=== PATIENT | female | born 1955 | race Caucasian/White ===

== ENCOUNTER 2018-06-03 06:03 | Day surgery (SDC) | payer BC ==
[2018-06-03] MEDS ORDERED: DIPRIVAN 200 MG/20 ML IV ONE (06:04)
[2018-06-03] MEDS ORDERED: Ketamine HCl 50 MG/ML IJ ONE (06:04)
[2018-06-03] MEDS ORDERED: Lactated Ringers 1,000 ML IV SCH (06:30)
[2018-06-03 08:59] VITALS: BP 157/87; PULSE 70; O2SAT 97
--- NOTE | 2018-06-03 13:15 | OP ---
SURGERY DATE/TIME: 06/03/2018 0747 PREOPERATIVE DIAGNOSIS: Odynophagia and dysphagia. POSTOPERATIVE DIAGNOSIS: Mild antral gastritis and duodenitis. PROCEDURE: Esophagogastroduodenoscopy with biopsy. SURGEON: Dr. Bruner. ANESTHESIA: Medications were given by the anesthesia department. BRIEF HISTORY: The patient is a 62 year old white female who reports now with complains of painful swallowing of meat. She reports that at times it feels like the food is somewhat sticking. It feels like it is in the upper portion of the chest. She reports she has had a previous endoscopy years ago for abdominal pain which was negative. The patient was felt the need to have endoscopic evaluation. She was appraised of the risks of the procedure including the risk of perforation, phlebitis, untoward reaction to medication, bleeding and missed lesions. The patient verbalized her understanding and desired to have the procedure performed. DESCRIPTION OF PROCEDURE: The patient was given the medications by the anesthesia department. She had continuous pulse oximetry, ECG monitoring, intermittent blood pressure monitoring and tidal CO2 monitoring during the examination. She was placed in the left lateral decubitus position. A bite block was placed and the flexible Olympus gastroscope was used to intubate the oropharynx. The scope was easily introduced in the esophagus which appeared to be normal throughout its length. The stomach was entered where normal gastric rugal folds were seen and these distended nicely with insufflation of air. The gastric darden was suctioned dry and stomach was re-insufflated. The scope was passed along the greater curvature of the stomach to the antrum where there appeared to be some erythema near the pylorus. The pylorus was intubated and the duodenum inspected. There also appeared to be some inflammation in the third and second portion of the duodenum as well. The scope is withdrawn towards the stomach. A retroflex view obtained of the lesser curvature, fundus and cardia regions of the stomach and these appeared to be normal. The scope was then redirected towards the gastric antrum and biopsies were obtained using cold biopsy technique to rule out the presence of Helicobacter pylori-type organisms. The scope was then removed from the patient who tolerated the procedure well and was sent back [facility] good condition.
== END 2018-06-03 09:16 | disposition home or self-care (01) ==
LOC: SDC 06:03
PROVIDERS: ATTEND Family Medicine
DX: R10.13 Epigastric pain (principal); R13.10 Dysphagia, unspecified; K29.70 Gastritis, unspecified, without bleeding; K29.80 Duodenitis without bleeding
CPT/HCPCS: 88305; 94250; J2704

== ENCOUNTER 2020-12-03 05:57 | Day surgery (SDC) | payer MEDICARE, BC ==
[2020-12-03] MEDS ORDERED: Lactated Ringers 1,000 ML IV SCH (06:30)
[2020-12-03] MEDS ORDERED: DIPRIVAN 200 MG/20 ML IV ONE (07:32)
[2020-12-03 08:43] VITALS: BP 151/87; PULSE 50; O2SAT 96
--- NOTE | 2020-12-03 09:07 | OP ---
SURGERY DATE/TIME: 12/03/2020 0735 PREOPERATIVE DIAGNOSIS: Screening exam. POSTOPERATIVE DIAGNOSIS: Mild to moderate sigmoid diverticulosis and rectal polyp. PROCEDURE: Colonoscopy with hot forceps biopsy polyp. SURGEON: Dr. Bruner. ANESTHESIA: MAC. Medications given by anesthesia department. HISTORY: The patient is a 65 year-old white female presenting now for repeat screening examination. She did previously have polyps in the colon. The patient was appraised of the risks of the procedure including the risk of perforation, phlebitis, untoward reaction to medication, bleeding and missed lesions. The patient verbalized her understanding and desired to have the procedure performed. DESCRIPTION OF PROCEDURE: The patient was given the medications by the anesthesia department. She had continuous pulse oximetry, ECG monitoring, intermittent blood pressure monitoring and tidal CO2 monitoring during the examination. She was placed in the left lateral decubitus position. A digital rectal examination was performed and revealed normal anal sphincter tone and no masses. The flexible Olympus pediatric colonoscope was used to intubate the rectum. A view of the colon was developed sequentially to the cecum. Upon insertion and withdrawal was noted mild to moderate sigmoid diverticulosis. There was also noted approximately 1.2 cm size polyp that appeared to be pedunculated in the rectum this was destroyed using multiple passes with hot biopsy forceps and pathology report to follow. The scope was removed from the patient who tolerated the procedure well and was sent back to OP recovery in good condition. The prep was noted to be good.
== END 2020-12-03 08:53 | disposition home or self-care (01) ==
LOC: SDC 05:57
PROVIDERS: ATTEND Family Medicine
DX: Z12.11 Encounter for screening for malignant neoplasm of colon (principal); K57.30 Diverticulosis of large intestine without perforation or abscess without bleeding; D12.8 Benign neoplasm of rectum
CPT/HCPCS: J2704

== ENCOUNTER 2023-10-22 05:38 | Day surgery (SDC) | payer MEDICARE, BC ==
[2023-10-22] MEDS: Lactated Ringers 1,000 ML IV SCH (06:25)
[2023-10-22 07:03] LABS: ANION GAP 13.5 MEQ/L (5-15); Calcium 9.2 mg/dL (8.4-10.2); Creatinine 1 0.63 mg/dL (0.52-1.04); Potassium 3.1 mmol/L (3.5-5.1)
[2023-10-22] MEDS ORDERED: DIPRIVAN 200 MG/20 ML IV ONE ×2 (08:09→08:20)
[2023-10-22] MEDS ORDERED: Xylocaine-Mpf 2% 5 Ml Vial ONE (08:09)
[2023-10-22] MEDS ORDERED: ATROPINE SULFATE 1MG ONE (08:14)
[2023-10-22] MEDS ORDERED: SUBLIMAZE 100 MCG/2 ML ONE (08:31)
[2023-10-22 09:08] VITALS: TEMP 97.2
[2023-10-22 09:26] VITALS: BP 166/83; PULSE 53; RESP 18; O2SAT 99
--- NOTE | 2023-10-22 10:13 | OP ---
SURGERY DATE/TIME: 10/22/2023 0810 PREOPERATIVE DIAGNOSIS: Screening exam. POSTOPERATIVE DIAGNOSIS: Sigmoid diverticulosis and small sigmoid colon polyp. PROCEDURE: Colonoscopy with cold forceps biopsy. SURGEON: Dr. Bruner. ANESTHESIA: Medications given by anesthesia department. HISTORY: The patient is a 67-year-old white female with history of diverticulosis and previous polyp as well. The patient was felt the need to have endoscopic evaluation. She was appraised of the risks of the procedure including the risk of perforation, phlebitis, untoward reaction to medication, bleeding and missed lesions. The patient verbalized her understanding and desired to have the procedure performed. DESCRIPTION OF PROCEDURE: The patient was given the medications by the anesthesia department. She had continuous pulse oximetry, ECG monitoring and intermittent blood pressure monitoring during the examination. She was placed in the left lateral decubitus position. Digital rectal examination was performed and revealed normal anal sphincter tone and no masses, small hemorrhoid. The flexible Olympus pediatric colonoscope was used to intubate the rectum. A view of the colon was developed sequentially to the cecum. Upon insertion and withdrawal was noted one small polyp in the proximal sigmoid colon which was destroyed using two passes of cold forceps biopsy instrument. The patient was also noted to have sigmoid diverticulosis. No other mucosal lesions encountered. The scope was removed from the patient who tolerated the procedure well and was sent back to OP recovery in good condition. The prep was noted to be fair to good.
== END 2023-10-22 09:30 | disposition home or self-care (01) ==
LOC: SDC 05:38
PROVIDERS: ATTEND Family Medicine
DX: Z12.11 Encounter for screening for malignant neoplasm of colon (principal); K57.30 Diverticulosis of large intestine without perforation or abscess without bleeding; K64.9 Unspecified hemorrhoids; I10 Essential (primary) hypertension; D12.5 Benign neoplasm of sigmoid colon
CPT/HCPCS: 36415; 80048; 93005; J0461; J2704; J3010